=== PATIENT | female | born 1960 | race Two or more races ===

== ENCOUNTER 2024-10-24 19:31 | Emergency (ER) | payer OTHER ==
[~2024-10-24] VITALS: Ht 157.5 cm; Wt 64.0 kg
[2024-10-24] MEDS ORDERED: COZAAR50 MG (20:06)
[2024-10-24] MEDS ORDERED: NEURONTIN300 MG (20:06)
[2024-10-24] MEDS ORDERED: LEVOTHYROXINE25 MCG (20:06)
[2024-10-24 20:07] VITALS: BP 145/86; O2SAT 99
[2024-10-24] MEDS ORDERED: ROSUVASTATIN CA10 MG (20:07)
[2024-10-24] MEDS ORDERED: METRONIDAZOLE/SODIUM CHLORIDE 500 MG/100 ML PIGGYBACK IV ONE ×2 (23:30→23:32)
[2024-10-24] MEDS ORDERED: KETOROLAC TROMETHAMINE 30 MG VIAL IV ONE (23:30)
[2024-10-24] MEDS ORDERED: KETOROLAC TROMETHAMINE 60 MG VIAL IM ONE (23:31)
[2024-10-25 00:23] LABS: HEMATOCRIT 39.2 % (36.0-45.00); MEAN CELL VOLUME 93.5 fL (80.00-100.00); MEAN CORPUSCULAR HGB CONC 33.2 g/dl (32.0-36.0); PLATELET COUNT 300 K/uL (150-450); RED BLOOD COUNT 4.19 M/uL (4.00-6.00); RED CELL DISTRIBUTION WIDTH 14.5 % (11.5-14.5)
[2024-10-25 00:40] LABS: BILIRUBIN TOTAL 0.7 mg/dL (0.3-1.2); CALCIUM 9.5 mg/dL (8.5-10.1); CREATININE SERUM 0.77 mg/dL (0.55-1.02); GLOBULINA 3.7 G/DL (2.4-3.5); POTASSIUM 3.78 mEq/L (3.5-5.1); TOTAL PROTEIN 7.7 gm/dL (6.4-8.2)
[2024-10-25 03:44] LABS: PH,URINE 5.5 (5.0-8.0); URINE APPEARANCE Clear; URINE BILIRRUBIN Negative (NEGATIVE); URINE BLOOD Negative; URINE COLOR Yellow; URINE GLUCOSE Negative (NEGATIVE); URINE KETONE Negative (NEGATIVE); URINE LEUKOCYTE Trace; URINE NITRATE Negative; URINE PROTEIN Negative (NEGATIVE); URINE UROBILINOGEN 0.2 E.U./dl
[2024-10-25 03:45] LABS: URINE BACTERIA 86.8 uL (0.0-1933); URINE EPITHELIAL CELLS 6.9 uL (0.0-38.8); URINE RBC 4.7 uL (0.0-20.8); URINE WBC 23.5 uL (0.0-23.2)
[2024-10-25 03:56] LABS: URINE CAST 0.88 uL (0.0-1.40)
== END 2024-10-25 05:24 ==
LOC: ER 19:34
PROVIDERS: Emergency Medicine
DX: K52.9 Noninfective gastroenteritis and colitis, unspecified (principal); R10.9 Unspecified abdominal pain; I10 Essential (primary) hypertension; Z88.0 Allergy status to penicillin
CPT/HCPCS: 36415; 74177; 96365; 99284; J1885; J3490; Q9965